=== PATIENT | female | born 1990 | race Two or more races ===

== ENCOUNTER 2020-11-10 13:04 | Outpatient (CLI) | payer OTHER | END 2020-11-10 13:28 | disposition home or self-care (01) | LOC: SONOGRAMA 13:04 → MAMO-SONO 13:15 → SONOGRAMA 13:28 | PROVIDERS: ATTEND Obstetrics & Gynecology | DX: N92.1 Excessive and frequent menstruation with irregular cycle (principal) ==

== ENCOUNTER 2021-04-24 22:36 | Emergency (ER) | payer OTHER ==
[~2021-04-24] VITALS: Ht 162.6 cm; Wt 90.7 kg
[2021-04-24] MEDS ORDERED: [UNRECOGNIZED DRUG - REMARK] (22:45)
[2021-04-25] MEDS ORDERED: TUSNEL LIQUID178 ML PO (02:04)
[2021-04-25] MEDS ORDERED: ZITHROMAX500 MG PO (02:04)
[2021-04-25] MEDS ORDERED: ZYRTEC10 MG PO (02:04)
== END 2021-04-25 02:39 | disposition home or self-care (01) ==
LOC: ER 22:36
DX: J32.9 Chronic sinusitis, unspecified (principal); R50.9 Fever, unspecified; R06.02 Shortness of breath

== ENCOUNTER 2021-07-09 07:14 | Outpatient (CLI) | payer OTHER ==
[~2021-07-09 07:14] MED LIST: TUSNEL LIQUID178 ML PO; ZITHROMAX500 MG PO; ZYRTEC10 MG PO; [UNRECOGNIZED DRUG - REMARK]
== END 2021-07-09 07:22 | disposition home or self-care (01) ==
LOC: RAD 07:14
PROVIDERS: ATTEND Internal Medicine
DX: J20.0 Acute bronchitis due to Mycoplasma pneumoniae (principal)

== ENCOUNTER 2022-10-31 09:29 | Outpatient (CLI) | payer OTHER | END 2022-10-31 09:40 | disposition home or self-care (01) | LOC: RAD 09:29 | PROVIDERS: ATTEND Internal Medicine | DX: J22 Unspecified acute lower respiratory infection (principal) ==

== ENCOUNTER 2023-01-03 10:33 | Outpatient (CLI) | payer OTHER | END 2023-01-03 10:44 | disposition home or self-care (01) | LOC: SONOGRAMA 10:33 | PROVIDERS: ATTEND Obstetrics & Gynecology | DX: N91.1 Secondary amenorrhea (principal) ==

== ENCOUNTER → 2023-11-15 11:04 | Outpatient (CLI) | payer OTHER | END | disposition home or self-care (01) | LOC: NUCLEAR 11:00 | PROVIDERS: ATTEND Internal Medicine | DX: R22.43 Localized swelling, mass and lump, lower limb, bilateral (principal) ==

== ENCOUNTER 2024-03-19 06:43 | Emergency (ER) | payer OTHER ==
[~2024-03-19] VITALS: Ht 162.6 cm; Wt 105.2 kg
[2024-03-19] MEDS ORDERED: TOPROL XL25 M1 (07:22)
[2024-03-19] MEDS ORDERED: MEPERIDINE HCL/PF 25 MG/ML VIAL IM ONE (08:45)
[2024-03-19 09:15] LABS: HEMATOCRIT 37.9 % (36.0-45.00); HEMOGLOBIN 12.6 g/dL (12.0-15.00); MEAN CELL VOLUME 78.2 fL (80.00-100.00); MEAN CORPUSCULAR HGB CONC 33.3 g/dl (32.0-36.0); PLATELET COUNT 375 K/uL (150-450); RED BLOOD COUNT 4.85 M/uL (4.00-6.00); RED CELL DISTRIBUTION WIDTH 13.8 % (11.5-14.5)
[2024-03-19 09:36] LABS: BILIRUBIN TOTAL 0.33 mg/dL (0.3-1.2); CALCIUM 9.5 mg/dL (8.5-10.1); CREATININE SERUM 0.99 mg/dL (0.55-1.02); GFR 64.21; GLOBULINA 4.5 G/DL (2.4-3.5); POTASSIUM 4.32 mEq/L (3.5-5.1); TOTAL PROTEIN 8.5 gm/dL (6.4-8.2)
[2024-03-19 09:53] LABS: URINE APPEARANCE Cloudy; URINE BILIRRUBIN Negative (NEGATIVE); URINE BLOOD Large; URINE COLOR Dark Yellow; URINE GLUCOSE Negative (NEGATIVE); URINE KETONE Trace (NEGATIVE); URINE LEUKOCYTE Trace; URINE NITRATE Negative
[2024-03-19 09:58] LABS: URINE BACTERIA 115.9 uL (0.0-1933); URINE EPITHELIAL CELLS 51.3 uL (0.0-38.8); URINE RBC 1760.8 uL (0.0-20.8); URINE WBC 33.2 uL (0.0-23.2)
[2024-03-19 10:04] LABS: URINE CAST 0.76 uL (0.0-1.40); URINE PROTEIN 100 (NEGATIVE)
[2024-03-19 16:14] VITALS: BP 115/78; O2SAT 98
== END 2024-03-19 18:56 | disposition home or self-care (01) ==
LOC: ER 06:44
PROVIDERS: Emergency Medicine
DX: K80.20 Calculus of gallbladder without cholecystitis without obstruction (principal); N83.201 Unspecified ovarian cyst, right side; I10 Essential (primary) hypertension

== ENCOUNTER 2024-04-04 01:47 | Emergency (ER) | payer OTHER ==
[~2024-04-04] VITALS: Ht 162.6 cm; Wt 103.0 kg
[~2024-04-04 01:47] MED LIST changes: +TOPROL XL25 M1
[2024-04-04] MEDS ORDERED: TOPROL XL25 M1 PO (02:08)
[2024-04-04] MEDS ORDERED: PROMETHAZINE HCL 50 MG/ML AMPUL IM STA (03:02)
[2024-04-04] MEDS ORDERED: KETOROLAC TROMETHAMINE 60 MG VIAL IM STA (03:02)
[2024-04-04] MEDS ORDERED: RINGERS SOLUTION,LACTATED 1,000 ML IV ONE (03:15)
[2024-04-04 04:07] LABS: HEMATOCRIT 33.3 % (36.0-45.00); HEMOGLOBIN 11.2 g/dL (12.0-15.00); MEAN CELL VOLUME 77.7 fL (80.00-100.00); MEAN CORPUSCULAR HEMOGLOBIN 26.1 pg (27.00-32.0); MEAN CORPUSCULAR HGB CONC 33.6 g/dl (32.0-36.0); PLATELET COUNT 255 K/uL (150-450); RED BLOOD COUNT 4.28 M/uL (4.00-6.00); RED CELL DISTRIBUTION WIDTH 14.1 % (11.5-14.5)
[2024-04-04 04:14] LABS: INR 1.01
[2024-04-04 04:18] LABS: ANION GAP 13 (10.0-20.0); BLOOD UREA NITROGEN 12 mg/dL (7-18); BUN CREA RATIO 13 (7.0-25.0); CALCIUM 9.2 mg/dL (8.5-10.1); CARBON DIOXIDE 23 mEq/L (21-32); CHLORIDE 109 mmol/L (98-107); CREATININE SERUM 0.92 mg/dL (0.55-1.02); GFR 69.47; GLUCOSE FASTING 123 mg/dL (65-100); OSMOLALITY SERUM 282 MOSM/KG (275-295); POTASSIUM 3.59 mEq/L (3.5-5.1); SODIUM 141 mmol/L (136-145)
[2024-04-04 04:44] LABS: HCG QUANTITATIVE < 1 mUI/mL (1-3)
[2024-04-04 06:24] LABS: PH,URINE 5.5 (5.0-8.0); URINE APPEARANCE Clear; URINE BILIRRUBIN Negative (NEGATIVE); URINE BLOOD Negative; URINE COLOR Yellow; URINE GLUCOSE Negative (NEGATIVE); URINE KETONE 15 (NEGATIVE); URINE LEUKOCYTE Negative; URINE NITRATE Negative; URINE PROTEIN Negative (NEGATIVE); URINE UROBILINOGEN 0.2 E.U./dl
[2024-04-04 06:28] LABS: URINE BACTERIA 365.3 uL (0.0-1933); URINE EPITHELIAL CELLS 16.3 uL (0.0-38.8); URINE RBC 3.8 uL (0.0-20.8); URINE WBC 10.5 uL (0.0-23.2)
[2024-04-04 06:55] LABS: URINE CAST 0.76 uL (0.0-1.40)
== END 2024-04-04 07:52 ==
LOC: ER 01:47
PROVIDERS: General Practice
DX: R10.2 Pelvic and perineal pain (principal); N83.291 Other ovarian cyst, right side

== ENCOUNTER 2024-04-04 09:57 | Outpatient (CLI) | payer OTHER ==
[~2024-04-04 09:57] MED LIST changes: +TOPROL XL25 M1 PO
== END 2024-04-04 10:11 | disposition home or self-care (01) ==
LOC: TOM 09:57
PROVIDERS: ATTEND Obstetrics & Gynecology Maternal & Fetal Medicine
DX: R10.32 Left lower quadrant pain (principal); K57.92 Diverticulitis of intestine, part unspecified, without perforation or abscess without bleeding

== ENCOUNTER 2024-04-10 06:33 | Day surgery (SDC) | payer OTHER ==
[2024-04-08 10:10] LABS: HEMATOCRIT 36.9 % (36.0-45.00); HEMOGLOBIN 12.1 g/dL (12.0-15.00); MEAN CELL VOLUME 79.4 fL (80.00-100.00); MEAN CORPUSCULAR HEMOGLOBIN 26.1 pg (27.00-32.0); MEAN CORPUSCULAR HGB CONC 32.8 g/dl (32.0-36.0); PLATELET COUNT 290 K/uL (150-450); RED BLOOD COUNT 4.65 M/uL (4.00-6.00); RED CELL DISTRIBUTION WIDTH 13.9 % (11.5-14.5)
[2024-04-08 11:04] LABS: INR 0.96; PARTIAL THROMBOPLASTIN TIME 25.9 SECONDS (22.0-34.0); PROTHROMBIN TIME 10.5 SECONDS (9.0-11.5)
[2024-04-08 11:12] LABS: ALBUMIN 3.9 gm/dL (3.4-5.0); BILIRUBIN TOTAL 0.33 mg/dL (0.3-1.2); CALCIUM 9.8 mg/dL (8.5-10.1); CREATININE SERUM 0.92 mg/dL (0.55-1.02); GFR 69.47; GLOBULINA 3.7 G/DL (2.4-3.5); POTASSIUM 4.34 mEq/L (3.5-5.1); TOTAL PROTEIN 7.6 gm/dL (6.4-8.2)
[2024-04-09 10:10] LABS: CA 125 6.3 U/mL (0.0-38.1)
[2024-04-10] MEDS ORDERED: CEFAZOLIN SODIUM 1,000 MG VIAL IV ONE (15:15)
[2024-04-10] MEDS ORDERED: KETOROLAC TROMETHAMINE 60 MG VIAL IM STA (16:02)
[2024-04-10] MEDS ORDERED: RINGERS SOLUTION,LACTATED 1,000 ML IV SCH (16:15)
== END 2024-04-10 17:35 | disposition home or self-care (01) ==
LOC: CIR.AMB 06:33
PROVIDERS: ATTEND Obstetrics & Gynecology
DX: N83.01 Follicular cyst of right ovary (principal); Z30.2 Encounter for sterilization

== ENCOUNTER 2024-06-28 09:05 | Outpatient (CLI) | payer OTHER | END 2024-06-28 09:17 | disposition home or self-care (01) | LOC: SONOGRAMA 09:05 | PROVIDERS: ATTEND Obstetrics & Gynecology | DX: N63.12 Unspecified lump in the right breast, upper inner quadrant (principal); N64.4 Mastodynia ==

== ENCOUNTER 2024-08-19 10:34 | Outpatient (CLI) | payer OTHER | END 2024-08-19 10:39 | disposition home or self-care (01) | LOC: SONOGRAMA 10:34 | PROVIDERS: ATTEND Internal Medicine | DX: E04.1 Nontoxic single thyroid nodule (principal) ==

== ENCOUNTER 2024-11-07 15:08 | Emergency (ER) | payer OTHER ==
[~2024-11-07] VITALS: Ht 162.6 cm; Wt 99.8 kg
[2024-11-07] MEDS ORDERED: METFORMIN HCL500 M4 (15:55)
[2024-11-07] MEDS ORDERED: KETOROLAC TROMETHAMINE 30 MG VIAL ONE ×2 (16:36→21:41)
[2024-11-07] MEDS ORDERED: FAMOTIDINE/PF 20 MG/2 ML VIAL ONE (16:37)
[2024-11-07] MEDS ORDERED: FAMOtidine 10 MG/ML (4ML VIAL) IV ONE (16:45)
[2024-11-07] MEDS ORDERED: KETOROLAC TROMETHAMINE 30 MG VIAL IV ONE ×2 (16:45→21:30)
[2024-11-07 17:04] LABS: BASO % 0.2 % (0.1-1.2); EOS # 0.04 (0.04-0.54); EOS % 0.4 % (0.7-7.0); HEMATOCRIT 38.7 % (34.1-44.9); HEMOGLOBIN 12.8 g/dL (11.2-15.7); LYMPH # 3.14 (1.18-3.74); LYMPH % 33.5 % (19.3-53.1); MONO # 0.64 (0.24-0.82); MONO % 6.8 % (4.7-12.5); NEUT % 58.9 % (34.0-71.1); PLATELET COUNT 307 K/uL (163-369); RED BLOOD COUNT 4.92 M/uL (3.93-5.22); RED CELL DISTRIBUTION WIDTH 12.6 % (11.6-14.4)
[2024-11-07 17:33] LABS: INR 0.96; PARTIAL THROMBOPLASTIN TIME 22.3 SECONDS (22.0-34.0); PROTHROMBIN TIME 10.5 SECONDS (9.0-11.5)
[2024-11-07 17:47] LABS: PH,URINE 6.5 (5.0-8.0); URINE APPEARANCE Clear; URINE BACTERIA 105.2 uL (0.0-1933); URINE BILIRRUBIN Negative (NEGATIVE); URINE BLOOD Negative; URINE COLOR Yellow; URINE EPITHELIAL CELLS 37.6 uL (0.0-38.8); URINE GLUCOSE Negative (NEGATIVE); URINE KETONE Trace (NEGATIVE); URINE LEUKOCYTE Negative; URINE NITRATE Negative; URINE PROTEIN Trace (NEGATIVE); URINE RBC 4.1 uL (0.0-20.8)
[2024-11-07 18:03] LABS: ALBUMIN 3.5 gm/dL (3.4-5.0); ALKALINE PHOSPHATASE 60 U/L (50-136); ALT/SGPT 19 U/L (12-78); ANION GAP 9 (10.0-20.0); AST/SGOT 14 U/L (15-37); BILIRUBIN TOTAL 0.22 mg/dL (0.3-1.2); BLOOD UREA NITROGEN 13 mg/dL (7-18); BUN CREA RATIO 16 (7.0-25.0); CALCIUM 9.2 mg/dL (8.5-10.1); CARBON DIOXIDE 27 mEq/L (21-32); CHLORIDE 107 mmol/L (98-107); CREATININE SERUM 0.83 mg/dL (0.55-1.02); GFR 78.23; GLOBULINA 3.6 G/DL (2.4-3.5); GLUCOSE FASTING 94 mg/dL (65-100); HCG QUANTITATIVE < 1 mUI/mL (1-3); OSMOLALITY SERUM 277 MOSM/KG (275-295); POTASSIUM 4.12 mEq/L (3.5-5.1); SODIUM 139 mmol/L (136-145); TOTAL PROTEIN 7.1 gm/dL (6.4-8.2)
[2024-11-07] MEDS ORDERED: NORFLEX100MG PO (21:27)
== END 2024-11-07 21:56 | disposition home or self-care (01) ==
LOC: ER 16:17
PROVIDERS: General Practice
DX: N83.209 Unspecified ovarian cyst, unspecified side (principal); R10.9 Unspecified abdominal pain; I10 Essential (primary) hypertension; E11.9 Type 2 diabetes mellitus without complications; Z79.84 Long term (current) use of oral hypoglycemic drugs
CPT/HCPCS: 36415; 74177; 76830; Q9965

== ENCOUNTER 2025-02-21 12:57 | Outpatient (CLI) | payer OTHER ==
[~2025-02-21 12:57] MED LIST changes: +METFORMIN HCL500 M4; +NORFLEX100MG PO
== END 2025-02-21 13:06 | disposition home or self-care (01) ==
LOC: SONOGRAMA 12:57
PROVIDERS: ATTEND Obstetrics & Gynecology
DX: R10.20 Pelvic and perineal pain unspecified side (principal); E04.2 Nontoxic multinodular goiter